=== PATIENT | male | born 1970 | race Caucasian/White ===

== ENCOUNTER 2024-11-07 17:40 | Emergency (ER) | payer BC ==
[~2024-11-07] VITALS: Ht 177.8 cm; Wt 84.1 kg
[2024-11-07 17:43] VITALS: BP 153/87; PULSE 100; RESP 16; TEMP 98.5; O2SAT 99
[2024-11-07] MEDS ORDERED: GABA-530 PO (18:06)
[2024-11-07] MEDS ORDERED: VALA100031 PO (18:06)
--- NOTE | 2024-11-07 18:07 | Physician Documentation ---
History of Present Illness ~ Chief Complaint: Rash Stated Complaint: RASH ON HEAD THAT IS PAINFUL Time Seen by MD: 17:55 Source: patient Mode of Arrival: POV Exam Limitations: no limitations HPI 54-year-old male noticed a rash to his scalp a couple of days ago with history of shingles he has noticed it is very painful and similar to a shingles outbreak approximately a year ago. Patient has recently moved and is under a lot of stress. No fevers or other associated symptoms Medication Reconciliation Allergies: Coded Allergies: Penicillins (Verified Allergy, Intermediate, RASH, 11/07/24) Past Medical History Past Medical History: *DERMATOLOGY* Review of Systems All Other Systems at this time: Reviewed and Negative Integumentary: Reports: see HPI Physical Exam Vital Signs: RN Vital Signs have been reviewed: Yes, Temperature: 98.5, Source: Temporal, Heart Rate: 100, Respiratory Rate: 16, BP: 153/87, Pulse Oximetry: 99, Weight: 84.090 Oxygen Flow Rate: 0 Physical Exam General: Alert, no apparent distress. HEENT: PERRL, EOMI, no injection, moist mucous membranes. Neck: Full range of motion. Respiratory: Lungs clear, no respiratory distress. Chest: No accessory muscle use. Cardiovascular: Regular rate and rhythm, no murmurs. Extremities: Normal range of motion, no deformity. Neurologic: Oriented x4. Psychiatric: Normal mood and affect. Skin: Small papular bullae like rash approximately 1.5 cm following dermatome to the left scalp Progress Results/Orders Results/Orders Vital Signs 11/07/24 17:43 Temp 98.5 Pulse 100 Resp 16 B/P (MAP) 153/87 Pulse Ox 99 O2 Flow Rate 0 Medical Decision Making Findings Shingles like rash to the left scalp discussed contact precautions medications/antivirals follow up with primary Departure Time of Disposition: 18:04 Disposition: 01 HOME / SELF CARE / HOMELESS Impression: Primary Impression: Shingles rash Condition: Stable Discharge Instructions: Shingles, [id number] Additional Instructions: Antiviral medications to help shorten duration of shingles outbreak to your scalp gabapentin as needed for nerve pain. 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
== END 2024-11-07 18:11 | disposition home or self-care (01) ==
LOC: ER 17:42
DX: R21 Rash and other nonspecific skin eruption (principal); Z88.0 Allergy status to penicillin
CPT/HCPCS: 99283